=== PATIENT | male | born 1945 | race Caucasian/White ===

== ENCOUNTER 2024-04-29 23:19 | Inpatient (IN) ==
[2024-04-29] MEDS: Iodixanol 320 (CONTRAST) 100 ML SDV IV ONE (23:44)
[2024-04-30 00:02] LABS: ABS Eosinophils 0.5 10^3/uL (0.0-0.5); ABS Lymphocytes 1.6 10^3/uL (1.0-4.8); ABS Monocytes 0.6 10^3/uL (0.0-1.1); ABS Neutrophils 3.6 10^3/uL (1.5-7.6); ABS Nucleated RBC 0.01 10^3/ul; Eosinophil % 7.7 %; Hematocrit 43.6 % (38-53); Hemoglobin 14.8 g/dL (13.2-16.3); Lymphocyte % 24.9 %; Mean Corpuscular Hemoglobin 30.5 pg (27-33); Mean Corpuscular Hgb Conc 33.9 g/dL (31-36); Mean Platelet Volume 8.9 fL (7.5-11.2); Nucleated Red Blood Cells % 0.1 %/100WBC (0.0-0.8); Platelet Count 137 10^3/uL (150-450); Red Blood Count 4.85 10^6/uL (4.06-5.63); Red Cell Distribution Width 14.4 % (12-17); White Blood Count 6.3 10^3/uL (3.6-10.2)
[2024-04-30 00:18] LABS: Activated Partial Thrombo Time 23.7 seconds (26.0-38.0); INR 1.01 (0.85-1.14)
[2024-04-30] MEDS: TENECTEPLASE 50 MG VIAL KIT 5 MG/ML (reconstituted) IV ONE (00:18)
[2024-04-30 00:40] LABS: Albumin 3.7 g/dL (3.5-5.7); Albumin/Globulin Ratio 1.7 (1-3); Creatinine, Serum 1.02 mg/dL (0.67-1.17); Globulin 2.2 g/dL (2-4); Potassium 4.3 mmol/L (3.5-5.0); Total Bilirubin 0.4 mg/dL (0.2-1.0); Total Protein 5.9 g/dL (6.4-8.9); eGFR CKD-EPI 75.2 (>60)
[2024-04-30 00:41] LABS: HDL Cholesterol 32.3 mg/dL; Indirect Bilirubin 0.4 mg/dL (0.3-1.0)
[2024-04-30 01:27] LABS: High Sensitivity Troponin 1 Hr 6 pg/mL (<20)
[2024-04-30 02:48] LABS: Urine Appearance Clear; Urine Bacteria Absent /HPF (Absent); Urine Bilirubin Negative (Negative); Urine Blood Negative (Negative); Urine Color Light-Yellow; Urine Glucose Negative (Negative); Urine Ketones Negative (Negative); Urine Nitrite Negative (Negative); Urine Protein Trace (Negative); Urine Red Blood Cell Absent /HPF (0-Trace); Urine Specific Gravity >1.050 (1.002-1.030); Urine Urobilinogen Negative (Negative); Urine White Blood Cell Absent /HPF (0-Trace)
[2024-04-30] MEDS ORDERED: Sulfur Hexaflouride MICROSPHR 25 MG VIAL IV PRN (02:56)
[2024-04-30] MEDS ORDERED: Labetalol IV 5 MG/ML 20 ml VIAL IV PUSH PRN (04:22)
[2024-04-30] MEDS ORDERED: Albuterol 2.5mg/3 ml (0.083%) NEB.SOLN INH PRN (04:24)
[2024-04-30] MEDS: Ondansetron 4 mg VIAL 2 MG/ML 2 ml VIAL IV PRN (06:36)
[2024-04-30 06:57] LABS: ABS Basophils 0.1 10^3/uL (0.0-0.1); ABS Eosinophils 0.4 10^3/uL (0.0-0.5); ABS Lymphocytes 3.6 10^3/uL (1.0-4.8); ABS Monocytes 0.8 10^3/uL (0.0-1.1); ABS Neutrophils 4.7 10^3/uL (1.5-7.6); Eosinophil % 4.5 %; Hematocrit 45.5 % (38-53); Hemoglobin 15.9 g/dL (13.2-16.3); Lymphocyte % 37.6 %; Mean Corpuscular Hemoglobin 31.2 pg (27-33); Mean Corpuscular Hgb Conc 34.9 g/dL (31-36); Mean Corpuscular Volume 89.6 fL (80-97); Nucleated Red Blood Cells % 0.1 %/100WBC (0.0-0.8); Platelet Count 149 10^3/uL (150-450); Red Blood Count 5.07 10^6/uL (4.06-5.63); Red Cell Distribution Width 14.3 % (12-17); White Blood Count 9.7 10^3/uL (3.6-10.2)
[2024-04-30] MEDS: Acetaminophen IV 1 GM/100ML 1,000 MG/100 ML BAG IV PRN (07:23)
[2024-04-30] MEDS ORDERED: hydrALAZINE 20 mg/ml 1 ML Vial IV ONE (07:55)
[2024-04-30 07:57] LABS: Calcium 8.9 mg/dL (8.6-10.3); Creatinine, Serum 0.89 mg/dL (0.67-1.17); Magnesium 1.8 mg/dL (1.9-2.7); eGFR CKD-EPI 87.7 (>60)
[2024-04-30] MEDS: hydrALAZINE 20 mg/ml 1 ML Vial IV IV SLOW PU ONE (07:59)
[2024-04-30] MEDS: Dexamethasone IV 4 MG/ML VIAL 1 ml VIAL IV SLOW PU ONE (08:22)
[2024-04-30] MEDS: Magnesium Sulfate 2 gm BAG 2 GM/50 ML BAG IVPB ONE (09:25)
[2024-04-30] MEDS: fentaNYL 100 mcg/2 ml 50 MCG/ML VIAL IV SLOW PU PRN (10:17)
[2024-04-30] MEDS ORDERED: Atropine 1 MG/ML INJ 1 ML VIAL IV PUSH PRN (10:47)
[2024-04-30] MEDS: fentaNYL INFUSION 50 mcg/mL VL 2,500 MCG/50 ML VIAL IV SCH ×2 (11:05→13:08)
[2024-04-30 11:19] LABS: High Sensitivity Troponin 1 Hr 5 pg/mL (<20)
[2024-04-30] MEDS: Midazolam 2 mg/2 ml VIAL 1 mg/ml 2 ml VIAL (2 mg) IV SLOW PU PRN (11:22)
[2024-04-30] MEDS: Midazolam 2 mg/2 ml VIAL 1 mg/ml 2 ml VIAL (2 mg) IV SLOW PU ONE (12:15)
[2024-04-30] MEDS: Rocuronium 50 mg VIAL 10 mg/ml 5 ml VIAL (50 mg) ONE ×2 (12:16→12:17)
[2024-04-30] MEDS: Succinylcholine 200 mg VIAL 20 mg/ml 10 ml VIAL (200 mg) ONE (12:16)
[2024-04-30] MEDS: Norepinephrine 32MCG/ML D5WBAG 8,000 MCG/250 ML BAG IV ONE (12:17)
[2024-04-30] MEDS: Midazolam 5 mg/5 ml VIAL 1 mg/ml 5 ml VIAL (5 mg) IV SLOW PU ONE (12:26)
[2024-04-30] MEDS: Midazolam 5 mg/5 ml VIAL 1 mg/ml 5 ml VIAL (5 mg) ONE (12:27)
[2024-04-30] MEDS: Norepinephrine 32MCG/ML D5WBAG 8,000 MCG/250 ML BAG IV SCH (12:31)
[2024-04-30] MEDS: Midazolam 5 mg/5 ml VIAL 1 mg/ml 5 ml VIAL (5 mg) IV SLOW PU PRN (12:37)
[2024-04-30] MEDS: Atropine 0.1 MG/ML 10 ml SYR (1 mg) ONE (13:42)
[2024-04-30] MEDS: Chlorhexidine MOUTHWASH 0.12% 15 ML UDC TOPICAL SCH (13:55)
[2024-04-30] MEDS ORDERED: Propofol 10 MG/ML 20 ML BTL ONE (14:00)
[2024-04-30] MEDS ORDERED: Rocuronium 50 mg VIAL 10 mg/ml 5 ml VIAL (50 mg) ONE (14:00)
[2024-04-30 17:02] LABS: Urine Appearance Clear; Urine Bilirubin Negative (Negative); Urine Blood Negative (Negative); Urine Color Yellow; Urine Glucose Negative (Negative); Urine Ketones Trace (Negative); Urine Nitrite Negative (Negative); Urine Protein 1+ (>=30 mg/dL) (Negative); Urine Specific Gravity 1.039 (1.002-1.030); Urine Urobilinogen Negative (Negative)
[2024-04-30 17:12] LABS: Urine Bacteria Absent /HPF (Absent); Urine Red Blood Cell 1+(3-5/hpf) /HPF (0-Trace); Urine White Blood Cell Trace(0-5/hpf) /HPF (0-Trace)
[2024-04-30] MEDS: Lactated Ringers 1000 ml BAG 1,000 ML IV ONE (19:01)
[2024-04-30] MEDS: Famotidine IV 10 MG/ML 2 ml VIAL (20 mg) IV SLOW PU SCH (20:30)
[2024-05-01] MEDS ORDERED: Atropine 0.1 MG/ML 10 ml SYR (1 mg) IV PUSH PRN (02:53)
[2024-05-01 04:10] LABS: Hemoglobin 14.8 g/dL (13.2-16.3); Mean Corpuscular Hemoglobin 30.3 pg (27-33); Mean Corpuscular Hgb Conc 33.7 g/dL (31-36); Mean Platelet Volume 9.2 fL (7.5-11.2); Platelet Count 168 10^3/uL (150-450); Red Blood Count 4.89 10^6/uL (4.06-5.63); Red Cell Distribution Width 14.7 % (12-17); White Blood Count 15.3 10^3/uL (3.6-10.2)
[2024-05-01 04:28] LABS: ABS Lymphocytes 1.8 10^3/uL (1.0-4.8); ABS Monocytes 1.6 10^3/uL (0.0-1.1); ABS Neutrophils 11.8 10^3/uL (1.5-7.6); ABS Nucleated RBC 0.01 10^3/ul; Eosinophil % 0.1 %; Lymphocyte % 11.9 %
[2024-05-01 04:29] LABS: Activated Partial Thrombo Time 28.3 seconds (26.0-38.0); INR 1.04 (0.85-1.14)
[2024-05-01 05:03] LABS: Calcium 8.5 mg/dL (8.6-10.3); Creatinine, Serum 1.04 mg/dL (0.67-1.17); Magnesium 2.1 mg/dL (1.9-2.7); Potassium 4.5 mmol/L (3.5-5.0); eGFR CKD-EPI 73.5 (>60)
[2024-05-01] MEDS: Lactated Ringers 1000 ml BAG 500 ML IV ONE ×2 (07:35→09:24)
[2024-05-01] MEDS: Heparin 5000 UNITS/ML 1 mL VIAL SUBCUT SCH (07:35)
[2024-05-01] MEDS: cefTRIAXone 1 gm/50 mL D5W 1 GM/50 ML BAG IV SCH (08:34)
[2024-05-01] MEDS: fentaNYL 100 mcg/2 ml 50 MCG/ML VIAL IV SLOW PU ONE (10:00)
[2024-05-02 05:07] LABS: ABS Eosinophils 0.3 10^3/uL (0.0-0.5); ABS Lymphocytes 1.4 10^3/uL (1.0-4.8); ABS Monocytes 1.1 10^3/uL (0.0-1.1); ABS Neutrophils 6.1 10^3/uL (1.5-7.6); ABS Nucleated RBC 0.01 10^3/ul; Hematocrit 39.7 % (38-53); Hemoglobin 13.6 g/dL (13.2-16.3); Mean Corpuscular Hgb Conc 34.3 g/dL (31-36); Mean Corpuscular Volume 90.6 fL (80-97); Mean Platelet Volume 9.3 fL (7.5-11.2); Nucleated Red Blood Cells % 0.1 %/100WBC (0.0-0.8); Platelet Count 112 10^3/uL (150-450); Red Blood Count 4.38 10^6/uL (4.06-5.63); Red Cell Distribution Width 14.4 % (12-17); White Blood Count 8.9 10^3/uL (3.6-10.2)
[2024-05-02 05:28] LABS: Calcium 8.2 mg/dL (8.6-10.3); Creatinine, Serum 0.88 mg/dL (0.67-1.17); Potassium 4.2 mmol/L (3.5-5.0)
[2024-05-02] MEDS ORDERED: Sodium Chloride(INHALANT) 3% 4 ML NEB.SOLN INH PRN (07:25)
[2024-05-02] MEDS ORDERED: guaiFENesin 100 mg/5 ml LIQ unit dose cup NG TUBE PRN (07:32)
[2024-05-03 06:21] LABS: ABS Eosinophils 0.4 10^3/uL (0.0-0.5); ABS Lymphocytes 1.2 10^3/uL (1.0-4.8); ABS Monocytes 0.8 10^3/uL (0.0-1.1); ABS Neutrophils 4.9 10^3/uL (1.5-7.6); Hematocrit 40.1 % (38-53); Hemoglobin 13.7 g/dL (13.2-16.3); Lymphocyte % 16.2 %; Mean Corpuscular Hemoglobin 30.9 pg (27-33); Mean Corpuscular Hgb Conc 34.2 g/dL (31-36); Mean Corpuscular Volume 90.3 fL (80-97); Mean Platelet Volume 9.3 fL (7.5-11.2); Platelet Count 110 10^3/uL (150-450); Red Blood Count 4.44 10^6/uL (4.06-5.63); Red Cell Distribution Width 14.4 % (12-17); White Blood Count 7.3 10^3/uL (3.6-10.2)
[2024-05-03 06:45] LABS: Calcium 8.6 mg/dL (8.6-10.3); Creatinine, Serum 0.7 mg/dL (0.67-1.17); Magnesium 1.9 mg/dL (1.9-2.7); eGFR CKD-EPI 94.3 (>60)
[2024-05-04 10:47] VITALS: BP 155/85
== END 2024-05-04 09:50 | DRG 61 ==
LOC: ED 23:19 → EDHOLD 04-30 02:21 → ICU 04-30 07:40 → MEDTELE 04-30 08:50 → PMRU 05-04 10:39
PROVIDERS: ADMIT Student in an Organized Health Care Education/Training Program; ATTEND Internal Medicine